=== PATIENT | male | born 1960 | race Caucasian/White ===

== ENCOUNTER 2021-02-18 12:50 | Outpatient (CLI) | payer OTHER | END 2021-02-18 12:51 | disposition home or self-care (01) | LOC: TBSIIMAG 12:50 | PROVIDERS: ATTEND Neurological Surgery | DX: M47.26 Other spondylosis with radiculopathy, lumbar region (principal) | CPT/HCPCS: 72148 ==

== ENCOUNTER 2022-02-14 10:47 | Outpatient (CLI) | payer OTHER | END 2022-02-14 10:48 | disposition home or self-care (01) | LOC: TBSIIMAG 10:47 | PROVIDERS: ATTEND Surgery | DX: M48.061 Spinal stenosis, lumbar region without neurogenic claudication (principal); M47.815 Spondylosis without myelopathy or radiculopathy, thoracolumbar region; M47.816 Spondylosis without myelopathy or radiculopathy, lumbar region | CPT/HCPCS: 72148 ==

== ENCOUNTER 2022-03-12 12:36 | Outpatient (CLI) | payer OTHER ==
[2022-03-12 13:26] LABS: Hemoglobin 14.3 g/dL (13.5-17.5); Mean Corpuscular HGB CONC 34.5 g/dL (32.0-36.0); Mean Corpuscular Hemoglobin 30.4 pg (27.0-33.0); Mean Corpuscular Volume 88.3 fl (81.2-95.1); Mean Platelet Volume 10.4 fl (7.4-10.4); Platelet Count 247 10x3/uL (150-450); RBC Distribution Width 13.8 % (11.5-14.5); White Blood Cell (WBC) Count 7.8 10x3/uL (3.5-10.5)
[2022-03-12 13:38] LABS: PTT 26.9 sec (22.0-33.0)
[2022-03-12 13:43] LABS: Anion Gap 14 mmol/L (10-20); BUN (Urea Nitrogen) 8 mg/dL (8.4-25.7); Calc. Creatinine Clearance 0 mL/min (70-130); Calcium 9.2 mg/dL (7.8-10.44); Carbon Dioxide 25 mmol/L (23-31); Chloride 106 mmol/L (98-107); Glucose 94 mg/dL (80-115); Potassium 4.6 mmol/L (3.5-5.1); Sodium 140 mmol/L (136-145)
== END 2022-03-12 12:37 | disposition home or self-care (01) ==
LOC: LABBT 12:36
PROVIDERS: ATTEND Surgery
DX: Z01.818 Encounter for other preprocedural examination (principal); M51.16 Intervertebral disc disorders with radiculopathy, lumbar region; M48.061 Spinal stenosis, lumbar region without neurogenic claudication; Z20.822 Contact with and (suspected) exposure to COVID-19
CPT/HCPCS: 80048; 85027; 85610; 85730; 93005; 93010; U0003; U0005

== ENCOUNTER 2022-03-14 05:51 | Observation (INO) | payer OTHER ==
[2022-03-11 12:38] VITALS: BMI 34.0
[2022-03-14] MEDS ORDERED: CEFAZOLIN 2 GM VIAL ONE (06:20)
[2022-03-14] MEDS ORDERED: Sodium Chloride 0.9% 100 ML ONE (06:20)
[2022-03-14] MEDS ORDERED: Lidocaine 1% MPF 2 ML VIAL ONE (06:20)
[2022-03-14] MEDS ORDERED: Thrombin 5000 UNITS/5 ML VIAL ONE (06:30)
[2022-03-14] MEDS ORDERED: fentaNYL Citrate/PF 100 MCG/2 ML SYRINGE ONE ×2 (06:56→10:36)
[2022-03-14] MEDS ORDERED: Dexmedetomidine 200 MCG/2 ML VIAL ONE (07:08)
[2022-03-14] MEDS ORDERED: Midazolam HCl 2 mg/2 ml Vial ONE (07:15)
[2022-03-14] MEDS ORDERED: Scopolamine 1.5 mg/72 hour Patch ONE (07:27)
[2022-03-14] MEDS ORDERED: Propofol 500 MG/50 ML VIAL ONE (07:35)
[2022-03-14] MEDS ORDERED: SUGAMMADEX SODIUM 200 MG/2 ML VIAL ONE (10:36)
[2022-03-14] MEDS ORDERED: Acetaminophen/Codeine 30-300mg Tablet PO PRN (11:19)
[2022-03-14] MEDS ORDERED: traMADol HCl 50 MG TAB PO PRN (11:19)
[2022-03-14] MEDS ORDERED: Acetaminophen 325 MG TAB PO PRN (11:19)
[2022-03-14] MEDS ORDERED: Morphine 2 MG/ML VIAL SLOW IVP PRN (11:19)
[2022-03-14] MEDS ORDERED: Ondansetron PF 4 MG/2 ML Vial IVP PRN (11:19)
[2022-03-14] MEDS ORDERED: tiZANidine HCl 4 MG TAB PO PRN (11:22)
[2022-03-14] MEDS ORDERED: hydrALAZINE 20 MG/ML VIAL SLOW IVP PRN (11:22)
[2022-03-14] MEDS ORDERED: Scopolamine 1.5 mg/72 hour Patch TD PRN (11:22)
[2022-03-14] MEDS ORDERED: Acetaminophen 500 MG TAB PO PRN (11:23)
[2022-03-14] MEDS ORDERED: Ondansetron HCl/PF 4 MG/2 ML Vial IVP PRN (11:26)
[2022-03-14] MEDS ORDERED: Fentanyl 100 MCG/2 ML VIAL ONE ×2 (11:32→11:52)
[2022-03-14] MEDS: Sodium Chloride 0.9% 1,000 ML IV SCH (13:26)
[2022-03-14] MEDS: cloNIDine 0.3 MG TAB PO SCH ×2 (14:35→21:35)
[2022-03-14] MEDS: CEFAZOLIN 2 GM in Sodium Chloride 0.9% 100 ML IVPB SCH ×2 (14:35→21:37)
[2022-03-14] MEDS: HYDROcodone/Acetaminophen 7.5/325 mg Tablet PO PRN ×2 (14:36→21:36)
[2022-03-14] MEDS ORDERED: traZODone HCl 50 MG TAB PO SCH (21:00)
[2022-03-15] MEDS: Sodium Chloride 0.9% 1,000 ML IV SCH ×2 (03:32→14:53)
[2022-03-15] MEDS: HYDROcodone/Acetaminophen 7.5/325 mg Tablet PO PRN ×2 (03:33→11:30)
[2022-03-15] MEDS: cloNIDine 0.3 MG TAB PO SCH (07:56)
[2022-03-15] MEDS ORDERED: Losartan 25 MG TAB PO SCH (09:00)
[2022-03-15 12:39] VITALS: BP 141/75; TEMP 98
== END 2022-03-15 14:56 | disposition home or self-care (01) ==
LOC: SDC 05:51 → SURG B 12:59
PROVIDERS: ADMIT Surgery; ATTEND Surgery
PROC: 01NB0ZZ Release Lumbar Nerve, Open Approach (ICD-10-PCS; principal; 2022-03-14)
PROC: 0SB20ZZ Excision of Lumbar Vertebral Disc, Open Approach (ICD-10-PCS; 2022-03-14)
DX: M51.16 Intervertebral disc disorders with radiculopathy, lumbar region (principal); M48.061 Spinal stenosis, lumbar region without neurogenic claudication; I10 Essential (primary) hypertension; G47.30 Sleep apnea, unspecified; E66.9 Obesity, unspecified; Z68.34 Body mass index [BMI] 34.0-34.9, adult; Z87.891 Personal history of nicotine dependence; Z79.899 Other long term (current) drug therapy; Z88.1 Allergy status to other antibiotic agents
CPT/HCPCS: 76000; 96365; 96375; 96376; G0378; J0690; J2250; J2270; J2704; J3010; J3370; J3490